=== PATIENT | female | born 1980 | race Caucasian/White ===

== ENCOUNTER 2022-06-17 08:02 | Outpatient (CLI) | payer BC | END 2022-06-17 08:03 | disposition home or self-care (01) | LOC: BICULT 08:02 | PROVIDERS: ATTEND Family Medicine | DX: R92.2 Inconclusive mammogram (principal); N63.14 Unspecified lump in the right breast, lower inner quadrant; N60.01 Solitary cyst of right breast ==

== ENCOUNTER → 2022-08-12 | Day surgery (SDC) | payer BC | END | disposition home or self-care (01) | LOC: BICULT 12:18 | PROVIDERS: ATTEND Family Medicine | PROC: 0HBT3ZX Excision of Right Breast, Percutaneous Approach, Diagnostic (ICD-10-PCS; principal; 2022-08-12) | DX: N60.21 Fibroadenosis of right breast (principal); N63.14 Unspecified lump in the right breast, lower inner quadrant | CPT/HCPCS: 19083; 19084; 88112; 88305 ==